=== PATIENT | female | born 1960 | race African-American/Black ===

== ENCOUNTER 2021-09-16 16:12 | Inpatient (IN) | payer OTHER, MEDICAID ==
[~2021-09-16] VITALS: Ht 165.1 cm; Wt 74.4 kg
[2021-09-16 18:02] LABS: BASOPHILS % 0.5 % (0.0-2.0); EOSINOPHILS % 0.8 % (0.0-5.0); HEMATOCRIT. 41.3 % (36.0-48.0); HEMOGLOBIN. 13.6 g/dL (12.0-16.0); LYMPHOCYTES % 11.9 % (20.0-50.0); MEAN CORPUSCULAR HEMOGLOBIN 30.4 pg (28.0-32.0); MEAN CORPUSCULAR VOLUME 92.5 fL (81.0-99.0); MONOCYTES % 7.2 % (2.0-8.0); NEUTROPHILS % 79.6 % (40.0-76.0); PLATELET 334 x1000/uL (130-400); RED BLOOD CELL COUNT 4.46 mill/uL (4.2-5.4); RED CELL DISTRIBUTION WIDTH 13.3 % (11.6-14.6)
[2021-09-16 18:07] LABS: CHLORIDE 105 mEq/L (98-107)
[2021-09-16] MEDS ORDERED: SODIUM CHLORIDE 0.9% 1,000 ML IV NR (19:00)
[2021-09-16] MEDS ORDERED: IOHEXOL-350 100 ML BOTTLE ONE (20:03)
[2021-09-16] MEDS ORDERED: INSULIN GLARGINE UD 100 UNITS/ML SYR SUBCUT ONE (21:45)
[2021-09-16] MEDS ORDERED: INSULIN LISPRO 100 UNITS/ML SUBCUT ONE (21:45)
[2021-09-17 04:02] VITALS: BP 119/70
[2021-09-17 04:15] VITALS: BP 119/70
[2021-09-17] MEDS ORDERED: MAGNESIUM/ALUMINUM HYDROXIDE/SIMETHICONE 30ML UDC PO PRN (05:00)
[2021-09-17] MEDS ORDERED: ACETAMINOPHEN 325MG TABLET PO PRN ×2 (05:00→09:15)
[2021-09-17] MEDS ORDERED: DOCUSATE SODIUM 100MG CAPSULE PO PRN (05:00)
[2021-09-17] MEDS ORDERED: CLONIDINE 0.1MG TABLET PO PRN (05:00)
[2021-09-17] MEDS ORDERED: ONDANSETRON HCL 4MG/2ML INJ IV PRN (05:00)
[2021-09-17] MEDS ORDERED: NALOXONE HCL 0.4MG/ML VIAL IV PRN (05:15)
[2021-09-17] MEDS ORDERED: DEXTROSE 50% WATER 50ML SYRINGE IV PRN (05:30)
[2021-09-17] MEDS: BLOOD SUGAR DIAGNOSTIC STRIP TEST SCH ×4 (06:22→20:58)
[2021-09-17] MEDS: INSULIN LISPRO 100 UNITS/ML SUBCUT SCH ×4 (06:23→21:11)
[2021-09-17] MEDS: SODIUM CHLORIDE 0.45% 1,000 ML IV SCH ×2 (06:30→19:20)
[2021-09-17] MEDS ORDERED: KCL 10MEQ/50ML PREMIX 50 ML IV NR (08:00)
[2021-09-17] MEDS ORDERED: PNEUMOCOCCAL 23-VAL P-SAC VAC 0.5 ML IM ONE (08:00)
[2021-09-17] MEDS ORDERED: INFLUENZA VACCINE 05/PF 0.5 ML SYRINGE IM ONE (10:00)
[2021-09-17 10:19] LABS: CHLORIDE 106 mEq/L (98-107)
[2021-09-17] MEDS: ENOXAPARIN 40MG/0.4ML SYR SUBCUT SCH (10:33)
[2021-09-17] MEDS: HYDROCODONE/ACETAMINOPHEN 5/325MG TABLET PO PRN (14:32)
[2021-09-17 16:00] VITALS: BP_SYST 114; BP_SYST 116; BP_DIAS 73; BP_DIAS 81
[2021-09-17 20:00] VITALS: BP 115/83
[2021-09-17 21:30] LABS: CLARITY URINE CLEAR (CLEAR); COLOR URINE YELLOW (YELLOW); KETONES URINE NEGATIVE (NEGATIVE); LEUKOCYTE ESTERASE URINE NEGATIVE (NEGATIVE); NITRITE URINE NEGATIVE (NEGATIVE); OCCULT BLOOD URINE NEGATIVE (NEGATIVE); PH URINE 5.5 (4.5-8.0); PROTEIN URINE NEGATIVE (NEGATIVE); SPECIFIC GRAVITY URINE 1.023 (1.005-1.030); UROBILINOGEN URINE 0.2 E.U./dL (0.2-1.0)
[2021-09-18] VITALS: BP_SYST 128; BP_SYST 135; BP_DIAS 82; BP_DIAS 87
[2021-09-18 04:00] VITALS: BP 139/88
[2021-09-18] MEDS: BLOOD SUGAR DIAGNOSTIC STRIP TEST SCH ×3 (06:06→16:40)
[2021-09-18] MEDS: INSULIN LISPRO 100 UNITS/ML SUBCUT SCH ×3 (06:22→17:10)
[2021-09-18] MEDS: SODIUM CHLORIDE 0.45% 1,000 ML IV SCH (06:25)
[2021-09-18 07:13] LABS: CHLORIDE 103 mEq/L (98-107)
[2021-09-18 07:17] LABS: BASOPHILS % 0.8 % (0.0-2.0); EOSINOPHILS % 1.4 % (0.0-5.0); HEMATOCRIT. 38.8 % (36.0-48.0); LYMPHOCYTES % 20.5 % (20.0-50.0); MEAN CORPUSCULAR HEMOGLOBIN 30.9 pg (28.0-32.0); NEUTROPHILS % 68.3 % (40.0-76.0); PLATELET 268 x1000/uL (130-400); RED BLOOD CELL COUNT 4.21 mill/uL (4.2-5.4); RED CELL DISTRIBUTION WIDTH 13.2 % (11.6-14.6)
[2021-09-18 07:31] LABS: LDL CHOLESTEROL 119 mg/dL (5-100)
[2021-09-18 07:32] LABS: HDL CHOLESTEROL 35 mg/dL (40-59)
[2021-09-18 08:00] VITALS: BP 122/83
[2021-09-18] MEDS: ENOXAPARIN 40MG/0.4ML SYR SUBCUT SCH (08:33)
[2021-09-18] MEDS: HYDROCODONE/ACETAMINOPHEN 5/325MG TABLET PO PRN (08:35)
[2021-09-18 15:55] VITALS: BP 116/80
== END 2021-09-18 18:35 | disposition home or self-care (01) | DRG 73 ==
LOC: ER 16:12 → MICUSO 22:39 → 7EST 09-17 02:05
PROVIDERS: ADMIT Hospitalist; ATTEND Hospitalist
DX: G90.8 Other disorders of autonomic nervous system (principal); G93.41 Metabolic encephalopathy; N17.9 Acute kidney failure, unspecified; M48.061 Spinal stenosis, lumbar region without neurogenic claudication; G90.9 Disorder of the autonomic nervous system, unspecified; I95.9 Hypotension, unspecified; E87.6 Hypokalemia; E11.9 Type 2 diabetes mellitus without complications; D72.829 Elevated white blood cell count, unspecified; F12.90 Cannabis use, unspecified, uncomplicated; Z20.822 Contact with and (suspected) exposure to COVID-19; I10 Essential (primary) hypertension; E87.5 Hyperkalemia; Z79.4 Long term (current) use of insulin; Z82.49 Family history of ischemic heart disease and other diseases of the circulatory system
CPT/HCPCS: 36415; 71045; 71275; 72148; 74177; 80048; 80053; 80061; 81003; 82962; 83036; 83880; 84484; 85025; 87426; 90686; 90732; 93970; 97161; 99285; J1650; J1815; J3480; Q9967